=== PATIENT | female | born 1985 ===

== ENCOUNTER 2019-09-11 10:10 | Emergency (ER) | payer OTHER ==
--- NOTE | 2019-09-11 11:32 | UC ---
Hand/Wrist HPI - HPI Summary HPI Summary: 34-year-old female presents with complaints of right thumb pain. States that just prior to arrival she was at work, knelt down to pick something up off the floor, lost her balance, reached out with her hand to catch herself and caused a hyperextension injury to the right thumb. Notes some mild swelling at the base of the thumb. Reports full range of motion. Denies any numbness or tingling. - History Of Current Complaint Chief Complaint: UCUpperExtremity Stated Complaint: THUMB INJURY Time Seen by Provider: 09/11/19 10:48 Hx Obtained From: Patient Hx Last Menstrual Period: 08/23/19 Pain Intensity: 4 - Allergies/Home Medications Allergies/Adverse Reactions: Allergies Allergy/AdvReac Type Severity Reaction Status Date / Time paint fumes Allergy resp Uncoded 09/11/19 10:38 difficulty Home Medications: Home Medications Vit D3/Folic Acid/B2/B6/B12 1 tab PO DAILY 09/11/19 [History Confirmed 09/11/19] PMH/Surg Hx/FS Hx/Imm Hx Previously Healthy: Yes - Denies significant PMH - Surgical History Surgical History: Yes Surgery Procedure, Year, and Place: wisdom teeth - Family History Known Family History: Positive: Non-Contributory - Social History Occupation: Employed Full-time Lives: Alone Alcohol Use: None Substance Use Type: None Smoking Status (MU): Never Smoked Tobacco Review of Systems All Other Systems Reviewed And Are Negative: Yes Constitutional: Positive: Negative Skin: Negative: Bruising Respiratory: Positive: Negative Cardiovascular: Positive: Negative Gastrointestinal: Positive: Negative Genitourinary: Positive: Negative Motor: Negative: Weakness Neurovascular: Negative: Decreased Sensation Musculoskeletal: Positive: Other: - See HPI. Negative: Decreased ROM Neurological: Positive: Negative Is Patient Immunocompromised?: No Physical Exam - Summary Physical Exam Summary: GENERAL APPEARANCE: Well developed, well nourished, alert and cooperative, and appears to be in no acute distress. CARDIAC: Normal S1 and S2. No S3, S4 or murmurs. Rhythm is regular. There is no peripheral edema, cyanosis or pallor. Extremities are warm and well perfused. Capillary refill is less than 2 seconds. Peripheral pulses intact. LUNGS: Clear to auscultation without rales, rhonchi, wheezing or diminished breath sounds. ABDOMEN: Positive bowel sounds. Soft, nondistended, nontender. No guarding or rebound. No masses or hepatosplenomegally. MUSKULOSKELETAL: ROM intact to all extremities. No joint erythema or tenderness. Normal muscular development. Normal gait. EXTREMITIES: Tenderness at the base of the right thumb over the thenar eminence. No gross deformity or ecchymosis noted. Full ROM. Circulation and sensation intact. SKIN: Skin normal color, texture and turgor with no lesions or eruptions. Triage Information Reviewed: Yes Vital Signs: Initial Vital Signs Temp 98.1 F 09/11/19 10:33 Pulse 65 09/11/19 10:33 Resp 16 09/11/19 10:33 BP 103/61 09/11/19 10:33 Pulse Ox 100 09/11/19 10:33 Vital Signs Reviewed: Yes Diagnostics - Radiology No standard instances Radiology Interpretation Completed By: Radiologist Summary of Radiographic Findings: Order Information: THUMB RIGHT. Clinical history: Right thumb injury. COMPARISON: None. TECHNIQUE: 3 radiographic views of the right thumb were obtained. FINDINGS: The soft tissues are unremarkable. The bone mineralization is within normal limits. No fracture is identified. Anatomic alignment is maintained. The joint spaces are preserved. IMPRESSION: No fracture identified. Hand/Wrist Course/Dx - Course Course Of Treatment: 34-year-old female presents with complaints of right thumb pain. States that just prior to arrival she was at work, knelt down to pick something up off the floor, lost her balance, reached out with her hand to catch herself and caused a hyperextension injury to the right thumb. Notes some mild swelling at the base of the thumb. Reports full range of motion. Denies any numbness or tingling. Afebrile. Vital signs stable. Patient had tenderness at the base of the right thumb over the thenar eminence. No gross deformity or ecchymosis noted. Full ROM. Circulation and sensation intact. X-ray showed no acute fracture or dislocation. Reviewed results with the patient. Recommending conservative treatment for a right thumb sprain including [id number] analgesics in PL[facility]. She was placed in a thumb spica splint by the RN. She is to follow-up with orthopedic surgery in 5-7 days if there is no improvement in her symptoms. Anticipatory guidance and warning symptoms reviewed with the patient. Verbalizes understanding and agrees with plan of care. - Differential Dx/Diagnosis Differential Diagnosis/HQI/PQRI: Contusion, Dislocation, Fracture, Sprain Provider Diagnosis: Sprain of right thumb Discharge ED - Sign-Out/Discharge Documenting (check all that apply): Patient Departure All imaging exams completed and their final reports reviewed: Yes - Discharge Plan Condition: Stable Disposition: HOME Patient Education Materials: Finger Sprain (ED) Forms: *Work Release Referrals: Halima Perry MD [Primary Care Provider] - Jocelyn Feldman MD [Medical Doctor] - 5 Days (Follow up in 5-7 days if no improvement in symptoms. Call for appointment.) Additional Instructions: The x-ray performed in the clinic today showed no evidence of a fracture. Rest the hand as much as possible. Wear the splint that was applied in the clinic today until you are pain free. You may remove to shower but should wear at all other times. Apply ice to the affected area for 15-20 minutes at least 4 times a day to help with the pain and swelling. Elevate the hand to help reduce swelling. Take acetaminophen (Tylenol) or ibuprofen (Advil, Motrin) according to directions as needed for pain. Follow up with orthopedic surgery in 5-7 days if symptoms do not improve. Seek immediate medical attention if you have severe pain not managed with pain medication, you are unable to walk or bear any weight, develop numbness or tingling in the hand or finger(s), or have any worsening of symptoms. - Billing Disposition and Condition Condition: STABLE Disposition: Home
== END 2019-09-11 11:51 | disposition home or self-care (01) ==
LOC: UCEAST 10:10
DX: S63.601A Unspecified sprain of right thumb, initial encounter (principal); Z91.09 Other allergy status, other than to drugs and biological substances; X50.0XXA Overexertion from strenuous movement or load, initial encounter; Y92.9 Unspecified place or not applicable
CPT/HCPCS: 99201; G0463